=== PATIENT | female | born 1995 | race Caucasian/White ===

== ENCOUNTER 2019-10-02 12:38 | Outpatient (CLI) | payer BC ==
[2019-10-02 13:57] LABS: HB2 TOTAL 14.3 g/dL; HEMOGLOBIN A1C 0.6 g/dL
[2019-10-02 14:24] LABS: T4 (THYROXINE) 10.04 ug/dL (6.09-12.23)
[2019-10-02 14:28] LABS: THYROID STIMULATING HORMONE 1.99 uIU/mL (0.34-5.60)
== END 2019-10-02 12:39 | disposition home or self-care (01) ==
LOC: LAB 12:38
PROVIDERS: ATTEND Nurse Practitioner Obstetrics & Gynecology
DX: E28.2 Polycystic ovarian syndrome (principal)
CPT/HCPCS: 36415; 82951; 83036; 84436; 84443

== ENCOUNTER 2020-05-29 11:30 | Outpatient (CLI) | payer OTHER | END 2020-05-29 11:31 | disposition home or self-care (01) | LOC: COV 11:30 | PROVIDERS: ATTEND Family Medicine | DX: R05 Cough (principal); M79.10 Myalgia, unspecified site; R53.83 Other fatigue; R68.83 Chills (without fever); J02.9 Acute pharyngitis, unspecified; R09.81 Nasal congestion; R11.2 Nausea with vomiting, unspecified; Z20.828 Contact with and (suspected) exposure to other viral communicable diseases ==

== ENCOUNTER 2020-10-07 15:12 | Outpatient (CLI) | payer OTHER | END 2020-10-07 15:13 | disposition home or self-care (01) | LOC: COV 15:12 | PROVIDERS: ATTEND Family Medicine | DX: Z20.828 Contact with and (suspected) exposure to other viral communicable diseases (principal) ==